=== PATIENT | male | born 1985 | race African-American/Black ===

== ENCOUNTER 2018-06-02 01:16 | Emergency (ER) | payer OTHER ==
[2018-06-02 01:33] VITALS: BP 135/81; PULSE 62; TEMP 98.3; BMI 22.5
--- NOTE | 2018-06-02 02:58 | PDOC ---
History of Present Illness - General History Source: Patient Exam Limitations: No Limitations <Tyra Celis - Last Filed: 06/02/18 02:54> <Óscar Leiva - Last Filed: 06/04/18 07:19> - General Chief Complaint: Toothache Stated Complaint: TOOTHACHE Time Seen by Provider: 06/02/18 02:11 Past History - Past Medical History COPD: No - Immunization History Immunization Up to Date: Yes - Suicide/Smoking/Psychosocial Hx Smoking Status: Yes Smoking History: Never smoked Number of Cigarettes Smoked Daily: 10 Hx Alcohol Use: Yes (social) Drug/Substance Use Hx: No Substance Use Type: None <Tyra Celis - Last Filed: 06/02/18 02:54> <Óscar Leiva - Last Filed: 06/04/18 07:19> - Past Medical History Allergies/Adverse Reactions: Allergies Allergy/AdvReac Type Severity Reaction Status Date / Time Penicillins Allergy Unknown Verified 01/06/15 00:05 Home Medications: Ambulatory Orders No Home Medications 0 dose .ROUTE UTDICT 04/25/12 Ibuprofen [Motrin] 800 mg PO TID #20 tablet 01/06/15 Sulfamethoxazole/Trimethoprim [Bactrim *Ds*] 1 tab PO BID #20 tablet 01/06/15 *Physical Exam - Vital Signs Last Vital Signs Temp Pulse Resp BP Pulse Ox 98.3 F 62 18 135/81 97 06/02/18 01:19 06/02/18 01:19 06/02/18 01:19 06/02/18 01:19 06/02/18 01:19 - Physical Exam General Appearance: No: Apparent Distress HEENT: positive: Pharynx Normal, Other (part of R lower 3rd molar tooth chipped off, +cavity, no gum swelling, no evidence of abscess) Respiratory/Chest: positive: Lungs Clear, Normal Breath Sounds. negative: Respiratory Distress Cardiovascular: positive: Regular Rhythm, Regular Rate, S1, S2. negative: Murmur <Tyra Celis - Last Filed: 06/02/18 02:54> - Vital Signs Last Vital Signs Temp Pulse Resp BP Pulse Ox 98.3 F 62 18 135/81 97 06/02/18 01:19 06/02/18 01:19 06/02/18 01:19 06/02/18 01:19 06/02/18 01:19 <Óscar Leiva - Last Filed: 06/04/18 07:19> Medical Decision Making - Medical Decision Making 33 y/o M with no sig pmh presents with R lower 3rd molar toothache x 1 month. Patient took Motrin prior to coming so now he no longer has pain but came to ED hoping to get tooth extraction. Has been unable to see a dentist as states was unable to due to his busy work schedule. Denies fever, sob, cp, n/v. Toothache - already resolved, no sign of infection 06/02/18 02:56 <Tyra Celis - Last Filed: 06/02/18 02:54> - Medical Decision Making 33yM no pmhx significant hx presents with tooth ache, improved w/ motrin. Due to his schedule he has been unable to see a dentist and was hoping to get the tooth removed today. Denies any fever/chills. on exam pt in no distress, dental exam noted for a fractured 3rd molar w/o signs of abscess will refer pt to a dentist The patient was seen and evaluated in conjunction with OMI Celis under my direct supervision, ancillary studies were reviewed. I independently evaluated the patient and I agree with the plan as outlined by OMI Celis . <Óscar Leiva - Last Filed: 06/04/18 07:19> *DC/Admit/Observation/Transfer - Discharge Dispostion Decision to Admit order: No <Tyra Celis - Last Filed: 06/02/18 02:54> <Óscar Leiva - Last Filed: 06/04/18 07:19> Diagnosis at time of Disposition: Toothache - Discharge Dispostion Disposition: HOME Condition at time of disposition: Stable - Referrals Referrals: Oralia Garcia [Primary Care Provider] - - Patient Instructions Printed Discharge Instructions: DI for Dental Pain Additional Instructions: Thank you for choosing [facility]. It was a pleasure taking care of you. You may take Motrin 600 mg every 6 hours by mouth as needed for mild to moderate pain. Take Motrin with food. Please follow-up in dental clinic to get your tooth extracted. Return to the Emergency Department if your symptoms worsen or persist or have other concerning symptoms. - Post Discharge Activity Forms/Work/School Notes: Back to Work
== END 2018-06-02 03:11 | disposition home or self-care (01) ==
LOC: JER 01:16
DX: K08.89 Other specified disorders of teeth and supporting structures (principal)
CPT/HCPCS: 99281-25

== ENCOUNTER 2018-08-11 08:28 | Emergency (ER) | payer SELFPAY ==
[2018-08-11 08:38] VITALS: BP 129/81; PULSE 68; TEMP 98.2; BMI 22.5
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
== END 2018-08-11 09:45 | disposition home or self-care (01) ==
LOC: JERFT 08:28
DX: M65.4 Radial styloid tenosynovitis [de Quervain] (principal)
CPT/HCPCS: 73110-TC-LT-FY; 73130-TC-LT-FY; 99281-25

== ENCOUNTER 2018-09-06 04:33 | Emergency (ER) | payer OTHER ==
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
[2018-09-06] MEDS ORDERED: IBUPROFEN 400 MG TABLET (FP) PO ONE ×2 (05:00→05:35)
[2018-09-06] MEDS ORDERED: VANCOMYCIN 1,000 MG in DEXTROSE 5%-WATER - 250 ML IVPB ONE (05:33)
--- NOTE | 2018-09-06 05:35 | PDOC ---
Attending Attestation - Resident Resident Name: Hugh Carpio - ED Attending Attestation I have performed the following: I have examined & evaluated the patient, The case was reviewed & discussed with the resident, I agree w/resident's findings & plan - HPI HPI: 09/06/18 05:32 Pt comes with an extensor tenosynovitis; states that 2 days ago he banged his hand on the trash compactor at work. He says that the area of infection has been swelling since that time. He states that he broke the metacarpals in his hand a couple years ago. States that he thinks that the bones may have broken again. However no trauma. - Physicial Exam PE: 09/06/18 05:34 Exam is normal, other than an extensor tenosynovitis over the 2nd 3rd, 4th metacarpals. - Medical Decision Making 09/06/18 05:34 Pt will have basic labs and he will have IV abx and we will consider admitting him for IV abx treatment. 09/06/18 07:02 Pt states that he may sign AMA and return later in the day 09/06/18 07:02 For now, pt will be signed out to the day ER team.
[2018-09-06 06:05] VITALS: BP 130/85; PULSE 65; TEMP 98.6; BMI 23.1
[2018-09-06] MEDS ORDERED: VANCOMYCIN 1 GRAM (PRE-DOCKED) 1,000 MG/250 ML BAG IVPB ONE (06:24)
[2018-09-06] MEDS ORDERED: CEFTRIAXONE 1,000 MG in DEXTROSE 5%-WATER - 50 ML IVPB ONE (07:01)
--- NOTE | 2018-09-06 07:07 | PDOC ---
*Physical Exam - Vital Signs Last Vital Signs Temp Pulse Resp BP Pulse Ox 98.6 F 65 15 130/85 65 L 09/06/18 05:49 09/06/18 05:49 09/06/18 05:49 09/06/18 05:49 09/06/18 05:49 ED Treatment Course - LABORATORY CBC & Chemistry Diagram: 09/06/18 07:05 09/06/18 06:03 - ADDITIONAL ORDERS Additional order review: 09/06/18 06:03 RBC Cancelled MCV Cancelled MCHC Cancelled RDW Cancelled MPV Cancelled Neutrophils % Cancelled Lymphocytes % Cancelled Monocytes % Cancelled Eosinophils % Cancelled Basophils % Cancelled - Medications Given in the ED: ED Medications Discontinued Medications Generic Name Dose Route Start Last Admin Trade Name Madelin PRN Reason Stop Dose Admin Vancomycin HCl 1,000 mg/ 250 mls @ 166.667 mls/hr 09/06/18 05:33 09/06/18 06: 38 Dextrose IVPB 09/06/18 07:02 166.667 mls/hr ONCE ONE Administration Protocol Ibuprofen 800 mg 09/06/18 05:00 09/06/18 05:46 Motrin - PO 09/06/18 05:01 800 mg ONCE ONE Administration Medical Decision Making - Medical Decision Making 09/06/18 07:06 Patient received on sign out from Dr. Carpio. Ceftriaxone 1000 mg ordered. Patient does not want to be admitted for IV abx. Plan to send home AMA and return later today for repeat IV abx. *DC/Admit/Observation/Transfer Diagnosis at time of Disposition: Hand pain, right, Tenosynovitis - Discharge Dispostion Disposition: AGAINST MEDICAL ADVICE Condition at time of disposition: Stable - Referrals Referrals: Rob Marrero MD [Staff Physician] - Aiden Hua DO [Staff Physician] - Johnny Mayer DO [Staff Physician] - Oralia Garcia [Primary Care Provider] - - Patient Instructions Printed Discharge Instructions: DI for Tenosynovitis, DI for Hand Pain Additional Instructions: You came into the ER with hand pain. We believe you have a hand infection called extensor tenosynovitis for which we recommended being admitted to the hospital to receive IV Abx. You stated that you cannot stay in the hospital. We gave you your first dose of Abx and you are going to come back tonight for your second dose of IV abx. Come back immediately at any point if you decide you want to receive treatment for your hand infection. Print Language: KAZAKH - Post Discharge Activity
[2018-09-06 07:16] LABS: BASO % 0.9 % (0-2.0); HEMATOCRIT 40.2 % (35.4-49); LYMPH % 23.4 % (8-40); MCH 27.7 pg (25.7-33.7); MCHC 32.3 g/dl (32.0-35.9); MEAN CELL VOLUME 85.7 fl (80-96); MEAN PLT VOLUME 9.5 fl (7.5-11.1); MONO % 7.9 % (3.8-10.2); NEUT % 66.8 % (42.8-82.8); PLATELET COUNT 180 K/MM3 (134-434); RBC 4.69 M/mm3 (4.00-5.60); RDW 12.7 % (11.9-15.9); WHITE BLOOD COUNT 9.4 K/mm3 (4.0-10.0)
[2018-09-06 07:19] LABS: ALBUMIN 4.5 g/dl (3.4-5.0); BLOOD UREA NITROGEN 6.1 mg/dL (7-18); CALCIUM 9.2 mg/dL (8.5-10.1); CREATININE 1.1 mg/dL (0.55-1.3); POTASSIUM 5.4 mmol/L (3.5-5.1); TOT PROT 8.3 g/dl (6.4-8.2)
[2018-09-06] MEDS ORDERED: CEFTRIAXONE 1 GM/50 ML BAG ONE (07:29)
== END 2018-09-06 08:03 | disposition left against medical advice (07) ==
LOC: JER 04:33
DX: M65.841 Other synovitis and tenosynovitis, right hand (principal); M79.641 Pain in right hand; Z87.891 Personal history of nicotine dependence
CPT/HCPCS: 36415; 73130-TC-RT-FY; 80053; 85025; 85651; 86140; 99282-25

== ENCOUNTER 2018-09-06 21:42 | Inpatient (IN) | payer OTHER ==
[2018-09-06] MEDS ORDERED: VANCOMYCIN 1,000 MG in DEXTROSE 5%-WATER - 250 ML IVPB ONE (23:36)
[2018-09-06] MEDS ORDERED: CEFTRIAXONE 1 GM in DEXTROSE 5%-WATER - 50 ML IVPB ONE (23:38)
[2018-09-07] MEDS ORDERED: VANCOMYCIN 1 GRAM (PRE-DOCKED) 1,000 MG/250 ML BAG IVPB ONE ×2 (00:21→02:15)
[2018-09-07] MEDS ORDERED: CEFTRIAXONE 1 GM/50 ML BAG ONE (00:21)
[2018-09-07 00:29] LABS: PLATELET COUNT 165 K/MM3 (134-434)
[2018-09-07 00:41] LABS: BASO % 1.2 % (0-2.0); EOS % 2.3 % (0-4.5); HEMATOCRIT 41.7 % (35.4-49); HEMOGLOBIN 13.4 GM/dL (11.7-16.9); MCH 27.8 pg (25.7-33.7); MCHC 32.1 g/dl (32.0-35.9); MEAN CELL VOLUME 86.4 fl (80-96); MONO % 7.8 % (3.8-10.2); NEUT % 65.7 % (42.8-82.8); RBC 4.83 M/mm3 (4.00-5.60); RDW 12.5 % (11.9-15.9); WHITE BLOOD COUNT 9.9 K/mm3 (4.0-10.0)
--- NOTE | 2018-09-07 01:44 | HP ---
CHIEF COMPLAINT: Right Hand Pain, Swelling PCP: Dr. Oralia Garcia HISTORY OF PRESENT ILLNESS: This is a 33 y/o young man with no PMHx. Who presents to the ED with pain, erythema and swelling to the dorsal aspect of his right hand x 2 days. Patient was seen here yesterday morning for same, but had to leave to take care of his child. He reports being told to return for admission for IV antibiotics. 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 He reports having similar symptoms to his left hand/wrist in last month he was seen and treated in the ED. Again denying fall or trauma. Patient denies numbness, tingling or decreased extension or flexion. 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 Family History: Mother- HTN Sisters x3, alive and well Allergies Penicillins Allergy (Unknown, Verified 01/06/15 00:05) HOME MEDICATIONS: Home Medications Medication Instructions Recorded No Home Medications 0 dose .ROUTE UTDICT 04/25/12 Ibuprofen [Motrin] 800 mg PO TID #20 tablet 01/06/15 Sulfamethoxazole/Trimethoprim 1 tab PO BID #20 tablet 01/06/15 [Bactrim *Ds*] Naproxen 500 mg PO BID PRN #20 tablet 08/11/18 REVIEW OF SYSTEMS CONSTITUTIONAL: Absent: fever, chills, diaphoresis, generalized weakness, malaise, loss of appetite, weight change HEENT: Absent: rhinorrhea, nasal congestion, throat pain, throat swelling, difficulty swallowing, mouth swelling, ear pain, eye pain, visual changes CARDIOVASCULAR: Absent: chest pain, syncope, palpitations, irregular heart rate, lightheadedness , peripheral edema RESPIRATORY: Absent: cough, shortness of breath, dyspnea with exertion, orthopnea, wheezing, stridor, hemoptysis GASTROINTESTINAL: Absent: abdominal pain, abdominal distension, nausea, vomiting, diarrhea, constipation, melena, hematochezia GENITOURINARY: Absent: dysuria, frequency, urgency, hesitancy, hematuria, flank pain, genital pain MUSCULOSKELETAL: right hand pain and swelling Absent: myalgia, arthralgia, joint swelling, back pain, neck pain SKIN: Erythema- right hand Absent: rash, itching, pallor HEMATOLOGIC/IMMUNOLOGIC: Absent: easy bleeding, easy bruising, lymphadenopathy, frequent infections ENDOCRINE: Absent: unexplained weight gain, unexplained weight loss, heat intolerance, cold intolerance NEUROLOGIC: Absent: headache, focal weakness or paresthesias, dizziness, unsteady gait, seizure, mental status changes, bladder or bowel incontinence PSYCHIATRIC: Absent: anxiety, depression, suicidal or homicidal ideation, hallucinations. PHYSICAL EXAMINATION Vital Signs - 24 hr 09/06/18 21:48 Temperature 98.3 F Pulse Rate 94 H Respiratory 20 Rate Blood Pressure 126/90 O2 Sat by Pulse 100 Oximetry (%) GENERAL: Awake, alert, and fully oriented, in no acute distress. HEAD: Normal with no signs of trauma. EYES: Pupils equal, round and reactive to light, extraocular movements intact, sclera anicteric, conjunctiva clear. No lid lag. EARS, NOSE, THROAT: Ears normal, nares patent, oropharynx clear without exudates. Moist mucous membranes. NECK: Normal range of motion, supple without lymphadenopathy, JVD, or masses. LUNGS: Breath sounds equal, clear to auscultation bilaterally. No wheezes, and no crackles. No accessory muscle use. HEART: Regular rate and rhythm, normal S1 and S2 without murmur, rub or gallop. ABDOMEN: Soft, nontender, not distended, normoactive bowel sounds, no guarding, no rebound, no masses. No hepatomegaly or splenomegaly. MUSCULOSKELETAL: Tenderness, erythema and edema to dorsal aspect of right hand, 2nd, 3rd and 4th metacarpals. Normal range of motion at all joints. No bony deformities. No CVA tenderness. +flexion and extension of UPPER EXTREMITIES: 2+ pulses, warm, well-perfused. No cyanosis. No clubbing. No peripheral edema. LOWER EXTREMITIES: 2+ pulses, warm, well-perfused. No calf tenderness. No peripheral edema. NEUROLOGICAL: Cranial nerves II-XII intact. Normal speech. Normal gait. PSYCHIATRIC: Cooperative. Good eye contact. Appropriate mood and affect. SKIN: Erythema to right dorsal aspect of hand. warm, dry, normal turgor, no rashes or lesions noted, normal capillary refill. Laboratory Results - last 24 hr 09/07/18 09/07/18 00:10 00:10 WBC 9.9 RBC 4.83 Hgb 13.4 Hct 41.7 MCV 86.4 MCH 27.8 MCHC 32.1 RDW 12.5 Plt Count 165 MPV 10.0 Absolute Neuts (auto) 6.5 Neutrophils % 65.7 Lymphocytes % 23.0 Monocytes % 7.8 Eosinophils % 2.3 D Basophils % 1.2 Nucleated RBC % 0 Sodium Cancelled Potassium Cancelled Chloride Cancelled Carbon Dioxide Cancelled Anion Gap Cancelled BUN Cancelled Creatinine Cancelled Est GFR (CKD-EPI)AfAm Cancelled Est GFR (CKD-EPI)NonAf Cancelled Random Glucose Cancelled Calcium Cancelled Total Bilirubin Cancelled AST Cancelled ALT Cancelled Alkaline Phosphatase Cancelled Total Protein Cancelled Albumin Cancelled ASSESSMENT/PLAN: This is a 33 y/o man with no significant medical history. Admitted for Extensor Tenosynovitis, Cellulitis of the Right Hand for further evaluation of their emergent condition. Plan: See Problem List FEN D51/2NS@100ml/hr Replete lytes prn NPO DVT ppx OOB SCDs Code Status: Full Code Dispo: Requires Inpatient Care Problem List - Problem (1) Tenosynovitis Assessment/Plan: ? etiology Right hand Xray- neg fx or dislocation Ceftriaxone and Vancomycin given in ED Will continue Vancomycin, patient has allergy to PCN, will defer continued Ceftriaxone to ID Add on ESR Appreciate Hand Surgery consult Appreciate ID consult Elevate extremity Neurovascular checks Monitor CBc Code(s): M65.9 - SYNOVITIS AND TENOSYNOVITIS, UNSPECIFIED (2) Cellulitis Assessment/Plan: See above Code(s): L03.90 - CELLULITIS, UNSPECIFIED Visit type - Emergency Visit Emergency Visit: Yes ED Registration Date: 09/06/18 Care time: The patient presented to the Emergency Department on the above date and was hospitalized for further evaluation of their emergent condition. - New Patient This patient is new to me today: Yes Date on this admission: 09/07/18 - Critical Care Critical Care patient: No
[2018-09-07] MEDS ORDERED: ACETAMINOPHEN 1000 MG/100 ML VIAL (NON FORMULARY) IVPB PRN (02:11)
[2018-09-07] MEDS ORDERED: DEXTROSE 5%-0.45% SALINE 1,000 ML IV SCH (02:15)
[2018-09-07 05:44] LABS: INR 1.03 (0.83-1.09); PROTHROMBIN TIME (PATIENT) 12.2 SEC (9.7-13.0)
[2018-09-07 05:53] LABS: BLOOD UREA NITROGEN 11.5 mg/dL (7-18); CALCIUM 8.6 mg/dL (8.5-10.1); POTASSIUM 3.8 mmol/L (3.5-5.1)
--- NOTE | 2018-09-07 09:21 | EKG ---
Test Reason : Blood Pressure : / mmHG Vent. Rate : 064 BPM Atrial Rate : 064 BPM P-R Int : 138 ms QRS Dur : 094 ms QT Int : 408 ms P-R-T Axes : 066 070 052 degrees QTc Int : 420 ms NORMAL SINUS RHYTHM NORMAL ECG NO PREVIOUS ECGS AVAILABLE Confirmed by LAYLA MATHEWS MD ([id number]) on 09/07/2018 9:20:38 AM Referred By: Confirmed By:LAYLA MATHEWS MD
--- NOTE | 2018-09-07 11:12 | PN ---
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 no fevers no ivdu no animal scratches seen in ED 09/06 given vanco/rocephin- he had to leave to take care of his kids returned 09/07 given vanco/rocephin again reports hand is improved no fevers has photos of phone with swelling of hand suspect extensor tendonitis secondary to overuse cannot r/o cellulitis awaiting hand surgery evaluation unknown pen allergy continue vanco/rocephin repeat esr/crp if patient permits- currently refusing labs never had blood cultures but no value after 2 days of antiibiotics if he continues to improve, suggest po clindamycin and outpt hand evaluation suggest he limit his video and cell phone use to allow his hand to rest Problem List - Problems (1) Cellulitis Code(s): L03.90 - CELLULITIS, UNSPECIFIED (2) Tenosynovitis Code(s): M65.9 - SYNOVITIS AND TENOSYNOVITIS, UNSPECIFIED
[2018-09-07 11:34] VITALS: BMI 20.7
--- NOTE | 2018-09-07 11:44 | PN ---
Progress Note, Physician Chief Complaint: Extensor Tenosynovitis History of Present Illness: Previous notes and events reviewed awake and alert NAD complain of aching pain to R wrist mild swelling noted to R wrist - Current Medication List Current Medications: Active Medications Acetaminophen (Ofirmev Injection -) 1,000 mg IVPB Q6H PRN PRN Reason: PAIN LEVEL 6-10 Dextrose/Sodium Chloride (D5-1/2ns -) 1,000 mls @ 100 mls/hr IV ASDIR [facility]INA Last Admin: 09/07/18 03:10 Dose: 100 mls/hr Vancomycin HCl (Vancomycin (Pre-Docked)) 1,000 mg in 250 mls @ 166.667 mls/hr IVPB Q12H MARINA; Protocol Ceftriaxone Sodium 1 gm/ (Dextrose) 50 mls @ 100 mls/hr IVPB DAILY MARINA; Protocol - Objective Vital Signs: Vital Signs Temperature 98.8 F 09/07/18 11:30 Pulse Rate 72 09/07/18 11:30 Respiratory Rate 20 09/07/18 11:30 Blood Pressure 132/61 09/07/18 11:30 O2 Sat by Pulse Oximetry (%) 100 09/07/18 11:22 Constitutional: Yes: No Distress, Calm Eyes: Yes: Conjunctiva Clear HENT: Yes: Atraumatic Cardiovascular: Yes: Regular Rate and Rhythm Respiratory: Yes: Regular, CTA Bilaterally Gastrointestinal: Yes: Normal Bowel Sounds, Soft Musculoskeletal: Yes: Other (R wrist swelling and TTP) Extremities: Yes: WNL Edema: Yes (R wrist) Neurological: Yes: Alert, Oriented Psychiatric: Yes: Alert, Oriented Labs: CBC, BMP 09/07/18 00:10 09/07/18 05:19 INR, PTT INR 1.03 (0.83-1.09) 09/07/18 05:19 Problem List - Problems (1) Tenosynovitis Assessment/Plan: -Xray shows no fracture -pain control -ID on board -Vancomycin, Ceftriaxone -Orthopedic and Hand plastics -ESR 121--will repeat in AM Code(s): M65.9 - SYNOVITIS AND TENOSYNOVITIS, UNSPECIFIED Assessment/Plan see progress notes
[2018-09-07] MEDS: VANCOMYCIN 1 GRAM (PRE-DOCKED) 1,000 MG/250 ML BAG IVPB SCH ×2 (13:30→23:59)
[2018-09-07] MEDS ORDERED: ACETAMINOPHEN 500 MG TABLET (FP) PO PRN (14:35)
--- NOTE | 2018-09-07 20:44 | CONS ---
INFECTIOUS DISEASE CONSULTATION DATE OF CONSULTATION: DATE OF DICTATION: 09/07/2018 REQUESTING PHYSICIAN: Johanny Botello MD This is a 33-year-old man who was recently seen in the ER at the end of July on the for left wrist pain. He was discharged with a brace with improvement of the symptoms which resolved. He then developed right dorsal hand swelling 2 days ago without any trauma. 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 He also plays a lot of video games. He had no fevers. No bites. No IV drug use or needle use of any kind. He has no animal scratches. He was seen in the emergency room on the . He was treated with vancomycin and ceftriaxone. He had to leave to take care of his kids. He returned on the . He was given vancomycin and Rocephin. This morning, he reports his hand is improved. He has never had any fevers or chills with this. He has photos of his hand with swelling which does appear improved at this point. PAST MEDICAL HISTORY: Unremarkable. There is no history of any diabetes. SURGICAL HISTORY: He had an ACL repair at age 12. ALLERGIES: He is allergic to PENICILLIN. The nature of the allergy is when he had his ACL repair. He was told by the surgeon that he was PENICILLIN allergic. He does not recall having any signs or symptoms. SOCIAL HISTORY: He is a former smoker. He quit 6 months ago. There is no alcohol use. He smokes marijuana. 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 He works 40 hours a week. FAMILY HISTORY: Notable for hypertension in his mother. MEDICATIONS AT HOME: He is on no medications at home. REVIEW OF SYSTEMS: Notable for improvement in his right hand symptoms. PHYSICAL EXAMINATION: Vital Signs: He is afebrile; temperature is 98.8. Pulse is 72. Blood pressure 132/61. Respiratory rate is 20. Saturating 100% on room air. HEENT: He is normocephalic. His eyes are anicteric. Neck: Supple. Lungs: Clear to auscultation. Heart: Regular rate and rhythm. Abdomen: Soft, nontender. Extremities: Notable for some mild swelling of the dorsum of his right hand. It is distal to the wrist. There is no erythema or warmth. He reports some discomfort when he moves his fingers and when he makes a fist. LABORATORY DATA: His white count is 9.9, hemoglobin 13.4. Sedimentation rate was 5 in the emergency room, and on repeat is 121. Repeat has been requested, but the patient has refused labs. INR is 1. BUN is 11 and creatinine 1. X-ray of the hand reveals no fracture or dislocation. In summary, this is a 33-year-old man with swelling of the dorsal aspect of his hand, possible extensive tendinitis, cannot rule out cellulitis. Awaiting hand surgery evaluation. He has an unknown PENICILLIN allergy. I would continue the vancomycin and Rocephin given the improvement. Would repeat a sedimentation rate and CRP is he permits. Currently refusing labs. Never had blood cultures, but now of no value after 2 days of antibiotics. If he continues to improve, would suggest oral clindamycin and an outpatient hand evaluation. Suggest he limit his video and cell phone use to allow his hand to rest. Case was discussed with the covering hospitalist. LUIS PAZ M.D. [id number]
[2018-09-08 07:31] LABS: HEMATOCRIT 41.5 % (35.4-49); HEMOGLOBIN 13.4 GM/dL (11.7-16.9); MCH 27.9 pg (25.7-33.7); MCHC 32.4 g/dl (32.0-35.9); MEAN CELL VOLUME 86.2 fl (80-96); MEAN PLT VOLUME 9.4 fl (7.5-11.1); PLATELET COUNT 168 K/MM3 (134-434); RBC 4.82 M/mm3 (4.00-5.60); RDW 12.6 % (11.9-15.9); WHITE BLOOD COUNT 6.5 K/mm3 (4.0-10.0)
[2018-09-08 07:52] VITALS: BP 122/82; PULSE 75; TEMP 98.5
[2018-09-08 08:52] LABS: CHLORIDE 106 mmol/L (98-107); POTASSIUM 4.3 mmol/L (3.5-5.1); SODIUM 141 mmol/L (136-145)
[2018-09-08 08:59] LABS: ALBUMIN 3.8 g/dl (3.4-5.0); ALK PHOS 50 U/L (45-117); ANION GAP 4 MMOL/L (8-16); BILIRUBIN,TOTAL 0.7 mg/dL (0.2-1); BLOOD UREA NITROGEN 9.4 mg/dL (7-18); CALCIUM 10.1 mg/dL (8.5-10.1); CO2 30 mmol/L (21-32); CREATININE 1.1 mg/dL (0.55-1.3); GLUCOSE,RANDOM 75 mg/dL (74-106); SGOT/AST 7 U/L (15-37); SGPT/ALT 14 U/L (13-61)
[2018-09-08] MEDS ORDERED: CEFTRIAXONE 1 GM in DEXTROSE 5%-WATER - 50 ML IVPB SCH (10:00)
[2018-09-08] MEDS ORDERED: cefTRIAXone SODIUM 1 GM VIAL ONE (10:26)
[2018-09-08] MEDS ORDERED: DEXTROSE 5%-WATER - 50 ML IVPB ONE (10:26)
[2018-09-08] MEDS: VANCOMYCIN 1 GRAM (PRE-DOCKED) 1,000 MG/250 ML BAG IVPB SCH (13:08)
[2018-09-08] MEDS ORDERED: ACETAMINOPHEN INJECTION 0 ML IVPB ONE (14:08)
--- NOTE | 2018-09-08 14:54 | CON.ORTH ---
Consult Reason for Consultation:: right hand pain/swelling - Alcohol/Substance Use Hx Alcohol Use: No - Smoking History Smoking history: Former smoker Have you smoked in the past 12 months: No Aproximately how many cigarettes per day: 10 If you are a former smoker, when did you quit?: 2004 Home Medications - Allergies Allergies/Adverse Reactions: Allergies Allergy/AdvReac Type Severity Reaction Status Date / Time Penicillins Allergy Unknown Verified 09/07/18 04:44 shellfish derived Allergy Verified 09/07/18 16:57 - Home Medications Home Medications: Ambulatory Orders NK [No Known Home Medication] 09/07/18 Physical Exam for Ortho Vital Signs: Vital Signs Temperature 98.5 F 09/08/18 07:00 Pulse Rate 75 09/08/18 07:00 Respiratory Rate 17 09/08/18 09:00 Blood Pressure 122/82 09/08/18 07:00 O2 Sat by Pulse Oximetry (%) 100 09/08/18 09:00 Labs: CBC, BMP 09/08/18 06:35 09/08/18 06:35 INR, PTT INR 1.03 (0.83-1.09) 09/07/18 05:19 - Upper Extremity Hand: Yes: Right, Other (minimal swelling, no erythema, nontender, full ROM, nvi ) Imaging - Results X-ray: Report Reviewed, Image Reviewed Assessment/Plan 33 y/o RH dominant male with no PMHx presented to the ED with pain, erythema and swelling to the dorsal aspect of his right hand x 2 days. Patient was seen here yesterday morning for same, but had to leave to take care of his child. He reports being told to return for admission for IV antibiotics. 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 He reports having similar symptoms to his left hand/wrist in last month he was seen and treated in the ED. Again denying fall or trauma. Patient denies numbness, tingling or decreased extension or flexion. Patient denies fever, chills, cough, SOB, CP, palpitations, AP, N/V/D, constipation, dysuria a/p right hand cellulitis- significant improvement with IV abx NTD Abx as per ID/med elevation, rom exercises ok to d/c from ortho on PO abx d/w Dr. Coffman f/u in 7-10 days in the office
--- NOTE | 2018-09-08 14:59 | DS ---
Physical Examination Vital Signs: Vital Signs Temperature 98.5 F 09/08/18 07:00 Pulse Rate 75 09/08/18 07:00 Respiratory Rate 17 09/08/18 09:00 Blood Pressure 122/82 09/08/18 07:00 O2 Sat by Pulse Oximetry (%) 100 09/08/18 09:00 Findings/Remarks: Patient is a 33 y/o male with no significant past medical history. Patient presented to ER complaints of pain, erythema, and swelling to dorsal aspect of right hand x 2 days. Patient denies falling, trauma, or injury to affected area. Patient had similar episode to L hand one month ago. Constitutional: Yes: No Distress, Calm Eyes: Yes: Conjunctiva Clear HENT: Yes: Atraumatic Cardiovascular: Yes: Regular Rate and Rhythm Respiratory: Yes: Regular, CTA Bilaterally Gastrointestinal: Yes: Normal Bowel Sounds, Soft Musculoskeletal: Yes: WNL Extremities: Yes: WNL Edema: No Neurological: Yes: Alert, Oriented Psychiatric: Yes: Alert, Oriented Labs: CBC, BMP 09/08/18 06:35 09/08/18 06:35 Discharge Summary Reason For Visit: PAIN OF RIGHT HAND, TENOSYNOVITIS Current Active Problems Cellulitis (Acute) Hospital Course: see progress notes Laboratory Tests 09/07/18 09/07/18 09/07/18 00:10 00:10 05:19 WBC 9.9 RBC 4.83 Hgb 13.4 Hct 41.7 MCV 86.4 MCH 27.8 MCHC 32.1 RDW 12.5 Plt Count 165 MPV 10.0 Absolute Neuts (auto) 6.5 Neutrophils % 65.7 Lymphocytes % 23.0 Monocytes % 7.8 Eosinophils % 2.3 D Basophils % 1.2 Nucleated RBC % 0 ESR Cancelled PT with INR 12.20 INR 1.03 Sodium Cancelled Potassium Cancelled Chloride Cancelled Carbon Dioxide Cancelled Anion Gap Cancelled BUN Cancelled Creatinine Cancelled Est GFR (CKD-EPI)AfAm Cancelled Est GFR (CKD-EPI)NonAf Cancelled Random Glucose Cancelled Calcium Cancelled Total Bilirubin Cancelled AST Cancelled ALT Cancelled Alkaline Phosphatase Cancelled C-Reactive Protein Total Protein Cancelled Albumin Cancelled Blood Type Antibody Screen 09/07/18 09/07/18 09/07/18 05:19 05:19 09:23 WBC RBC Hgb Hct MCV MCH MCHC RDW Plt Count MPV Absolute Neuts (auto) Neutrophils % Lymphocytes % Monocytes % Eosinophils % Basophils % Nucleated RBC % ESR 121 H PT with INR INR Sodium 143 Potassium 3.8 Chloride 108 H Carbon Dioxide 27 Anion Gap 7 L BUN 11.5 Creatinine 1.0 Est GFR (CKD-EPI)AfAm 113.31 Est GFR (CKD-EPI)NonAf 97.76 Random Glucose 84 Calcium 8.6 Total Bilirubin AST ALT Alkaline Phosphatase C-Reactive Protein Total Protein Albumin Blood Type O POSITIVE Antibody Screen Negative 09/08/18 09/08/18 09/08/18 06:35 06:35 06:35 WBC 6.5 RBC 4.82 Hgb 13.4 Hct 41.5 MCV 86.2 MCH 27.9 MCHC 32.4 RDW 12.6 Plt Count 168 MPV 9.4 Absolute Neuts (auto) Neutrophils % Lymphocytes % Monocytes % Eosinophils % Basophils % Nucleated RBC % ESR 2 PT with INR INR Sodium 141 Potassium 4.3 Chloride 106 Carbon Dioxide 30 Anion Gap 4 L BUN 9.4 Creatinine 1.1 Est GFR (CKD-EPI)AfAm 100.97 Est GFR (CKD-EPI)NonAf 87.12 Random Glucose 75 Calcium 10.1 Total Bilirubin 0.7 AST 7 L ALT 14 Alkaline Phosphatase 50 C-Reactive Protein < 0.3 Total Protein 7.0 Albumin 3.8 Blood Type Antibody Screen Active Medications Generic Name Dose Route Start Last Admin Trade Name Freq PRN Reason Stop Dose Admin Acetaminophen 1,000 mg 09/07/18 14:35 Tylenol - PO Q6H PRN PAIN SCALE 3-10 Vancomycin HCl 1,000 mg in 250 mls @ 166.667 mls/hr 09/07/18 12:00 09/08/18 13:08 Vancomycin (Pre-Docked) IVPB Not Given Q12H [facility] Protocol Ceftriaxone Sodium 1 gm/ 50 mls @ 100 mls/hr 09/08/18 10:00 09/08/18 10:49 Dextrose IVPB Not Given DAILY [facility] Protocol Condition: Stable - Instructions Diet, Activity, Other Instructions: Follow up with Dr Botello in 1 week after discharge Follow up with Orthopedics Dr Coffman in 7-10days continue with antibiotics as prescribed return to ER if develop severe pain, respiratory distress, chest pain Referrals: Johanny Botello MD [Staff Physician] - Dean Coffman MD [Staff Physician] - Disposition: HOME - Home Medications Comprehensive Discharge Medication List: Ambulatory Orders Acetaminophen [Tylenol .Extra-Strength -] 1,000 mg PO Q6H PRN tablet 09/08/18 Clindamycin [Cleocin -] 300 mg PO TID #15 capsule 09/08/18
--- NOTE | 2018-09-08 15:00 | PN ---
Progress Note (short form) - Note Progress Note: hand markedly improved no complaints Vital Signs Period Temp Pulse Resp BP Sys/Meehan Pulse Ox Last 24 Hr 98 F-98.5 F 70-75 17-20 122-135/76-95 100-100 cor-rrr lungs clear hand swelling minimal right hand dorsal surface near wrist CBC, BMP 09/08/18 06:35 09/08/18 06:35 Laboratory Tests 09/08/18 09/08/18 06:35 06:35 ESR 2 C-Reactive Protein < 0.3 cellulitis/tenosynovitis imrpoved, inflammatory markers negative can switch to po clindamycin 300 tid for 5 days suggest he wear gloves at work d/w hospitalist Problem List - Problems (1) Cellulitis Code(s): L03.90 - CELLULITIS, UNSPECIFIED (2) Tenosynovitis Code(s): M65.9 - SYNOVITIS AND TENOSYNOVITIS, UNSPECIFIED
== END 2018-09-08 15:55 | disposition home or self-care (01) | DRG 383 ==
LOC: JER 21:42 → JERBED 23:43 → J6S 09-07 09:41
PROVIDERS: ADMIT Family Medicine; ATTEND Family Medicine
DX: L03.113 Cellulitis of right upper limb (principal); M65.9 Synovitis and tenosynovitis, unspecified; Z87.891 Personal history of nicotine dependence
CPT/HCPCS: 36415; 80048; 80053; 85025; 85027; 85610; 85651; 86140; 86850; 86900; 86901; 93005; 93010; 99285-25; J0131

== ENCOUNTER 2021-09-06 18:20 | Emergency (ER) | payer OTHER ==
[2021-09-06 18:30] VITALS: BP 134/80; PULSE 68; TEMP 98.1; BMI 23.7
[2021-09-06] MEDS ORDERED: CLINDAMYCIN HCL 150 MG CAPSULE (FP) PO ONE (20:59)
== END 2021-09-06 21:20 | disposition home or self-care (01) ==
LOC: JER 18:20
DX: L03.113 Cellulitis of right upper limb (principal)
CPT/HCPCS: 73110-TC-RT-FY; 73130-TC-RT-FY; 99284-25

== ENCOUNTER 2022-10-08 14:05 | Emergency (ER) | payer SELFPAY ==
[2022-10-08 14:09] VITALS: BP 133/94; PULSE 87; RESP 18; TEMP 97; BMI 23.7
[2022-10-08] MEDS ORDERED: IBUPROFEN 600 MG TABLET (FP) PO ONE ×2 (14:32→14:38)
== END 2022-10-08 15:46 | disposition home or self-care (01) ==
LOC: JERFT 14:05
DX: S90.02XA Contusion of left ankle, initial encounter (principal); M25.572 Pain in left ankle and joints of left foot; V00.831A Fall from motorized mobility scooter, initial encounter; Y93.55 Activity, bike riding
CPT/HCPCS: 73590-TC-LT-FY; 73610-TC-LT-FY; 73630-TC-LT; 99283-25

== ENCOUNTER 2022-11-01 01:39 | Emergency (ER) | payer SELFPAY ==
[2022-11-01 01:48] VITALS: BP 134/92; PULSE 68; RESP 18; TEMP 98; BMI 23.1
== END 2022-11-01 04:24 | disposition home or self-care (01) ==
LOC: JER 01:39
DX: M25.531 Pain in right wrist (principal); G56.01 Carpal tunnel syndrome, right upper limb; R22.31 Localized swelling, mass and lump, right upper limb
CPT/HCPCS: 73110-TC-RT-FY; 73130-TC-RT-FY; 99283-25

== ENCOUNTER 2023-02-14 17:32 | Emergency (ER) | payer SELFPAY ==
[2023-02-14 18:20] VITALS: BP 130/90; PULSE 63; RESP 16; TEMP 98.7; BMI 21.3
== END 2023-02-14 21:29 | disposition home or self-care (01) ==
LOC: JERFT 17:32
DX: M25.532 Pain in left wrist (principal)
CPT/HCPCS: 99282-25